=== PATIENT | female | born 1975 | race Caucasian/White ===

== ENCOUNTER 2016-09-07 11:46 | Emergency (ER) | payer SELFPAY ==
[~2016-09-07] VITALS: Wt 98.5 kg
[~2016-09-07 11:46] MED LIST: CYAN1TAB14 PO; IRON1TAB78 PO; PREN-46 PO
== END 2016-09-07 14:25 | disposition left against medical advice (07) ==
LOC: E/R 11:46
DX: Z53.21 Procedure and treatment not carried out due to patient leaving prior to being seen by health care provider (principal)
CPT/HCPCS: 93005

== ENCOUNTER 2018-03-25 09:03 | Emergency (ER) | END 2018-03-25 15:43 | disposition home or self-care (01) ==

== ENCOUNTER 2018-04-08 10:01 | Emergency (ER) | END 2018-04-08 12:23 | disposition home or self-care (01) ==